=== PATIENT | male | born 1965 | race Caucasian/White ===

== ENCOUNTER 2018-10-14 20:39 | Emergency (ER) | payer OTHER, SELFPAY ==
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
--- NOTE | 2018-10-14 21:19 | RAD REPORT ---
EXAM DESCRIPTION: Alonso Single View10/14/2018 8:55 pm CLINICAL HISTORY: Chest pain COMPARISON: none FINDINGS: The lungs appear clear of acute infiltrate. The heart is normal size IMPRESSION: No acute abnormalities displayed
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
[2018-10-14] MEDS ORDERED: HYDROCODONE/APAP 5/325 MG TAB ONE (21:56)
== END 2018-10-14 22:12 | disposition home or self-care (01) ==
LOC: ER 20:39
DX: S13.9XXA Sprain of joints and ligaments of unspecified parts of neck, initial encounter (principal); V49.40XA Driver injured in collision with unspecified motor vehicles in traffic accident, initial encounter; Z72.0 Tobacco use
CPT/HCPCS: 70450; 71045; 72125; 99284